=== PATIENT | male | born 1950 | race Caucasian/White ===

== ENCOUNTER 2022-09-27 17:14 | Emergency (ER) | payer MEDICARE ==
[2022-09-27 17:54] LABS: ESTIMATED GFR 50 mL/min (>60)
[2022-09-27] MEDS ORDERED: Aspirin 81 MG Tab.Chew PO ONE (17:58)
[2022-09-27 18:09] LABS: TROPONIN I HIGH SENSITIVITY 1063.9 pg/mL (<=60.3)
[2022-09-27] MEDS ORDERED: Heparin Sodium 5,000 Units/ML Vial IVPUSH ONE (18:12)
[2022-09-27] MEDS ORDERED: Heparin Sodium/D5W 25,000 UNITS/500 ML BAG IV SCH (18:15)
== END 2022-09-27 19:45 ==
LOC: JP.ED 17:14
DX: I21.4 Non-ST elevation (NSTEMI) myocardial infarction (principal); Z88.5 Allergy status to narcotic agent; Z88.8 Allergy status to other drugs, medicaments and biological substances; Z91.018 Allergy to other foods; Z79.82 Long term (current) use of aspirin; Z79.899 Other long term (current) drug therapy
CPT/HCPCS: 36415; 71045; 80053; 84484; 85025; 86140; 93005; 96365; 96376; 99285; J1644; U0002